=== PATIENT | female | born 1980 | race Caucasian/White ===

== ENCOUNTER 2017-03-25 17:59 | Emergency (ER) | payer SELFPAY ==
[~2017-03-25] VITALS: Ht 144.8 cm; Wt 75.7 kg
[2017-03-25 20:21] VITALS: BP 131/77
== END 2017-03-25 20:21 | disposition home or self-care (01) ==
LOC: ED 17:59
DX: J06.9 Acute upper respiratory infection, unspecified (principal); M54.5 Low back pain
CPT/HCPCS: J1885

== ENCOUNTER 2019-10-09 21:57 | Emergency (ER) | payer SELFPAY ==
[~2019-10-09] VITALS: Ht 144.8 cm; Wt 76.7 kg
[2019-10-09 22:09] VITALS: Ht 144.8 cm; Wt 76.7 kg
[2019-10-09 23:05] VITALS: BP 135/72
== END 2019-10-09 23:05 | disposition home or self-care (01) ==
LOC: ED 21:57
DX: J40 Bronchitis, not specified as acute or chronic (principal); L50.9 Urticaria, unspecified

== ENCOUNTER 2020-01-24 12:39 | Emergency (ER) | payer MEDICAID, SELFPAY ==
[~2020-01-24] VITALS: Ht 144.8 cm; Wt 54.4 kg
[2020-01-24 13:53] VITALS: Ht 144.8 cm; Wt 54.4 kg
[2020-01-24 14:15] VITALS: BP 122/80
== END 2020-01-24 14:15 | disposition home or self-care (01) ==
LOC: ED 12:39
DX: U07.1 COVID-19 (principal); J40 Bronchitis, not specified as acute or chronic
CPT/HCPCS: U0003-CS

== ENCOUNTER 2020-07-18 09:21 | Emergency (ER) | payer SELFPAY ==
[~2020-07-18] VITALS: Ht 152.4 cm; Wt 63.5 kg
[2020-07-18 09:24] VITALS: BP 120/77; Ht 152.4 cm; Wt 63.5 kg
== END 2020-07-18 10:30 | disposition home or self-care (01) ==
LOC: ED 09:21
DX: B34.9 Viral infection, unspecified (principal); Z20.828 Contact with and (suspected) exposure to other viral communicable diseases
CPT/HCPCS: U0003